=== PATIENT | female | born 1955 | race Caucasian/White ===

== ENCOUNTER → 2018-02-01 10:10 | Outpatient (CLI) | payer OTHER, SELFPAY ==
[2018-02-01 11:20] LABS: Alanine Aminotransferase 38 IU/L (9-52); Albumin 3.7 g/dL (3.5-5.0); Albumin Globulin Ratio 1.3 (1.0-2.8); Alkaline Phosphatase 46 U/L (38-126); Aspartate Aminotransferase 29 IU/L (14-36); BUN Creatinine Ratio 23.3 (6-22); Bilirubin Total 0.6 mg/dL (0.2-1.3); Calcium 9.1 mg/dL (8.4-10.2); Cholesterol 226 mg/dL (140-199); Estimated Glomerular Filt Rate > 60.0 mL/min (>60); Globulin 2.8 g/dL (1.7-4.1); Glucose 89 mg/dL (80-110); HDL Cholesterol 58 mg/dL (40-60); HEMOLYSIS < 15 (0-50); LDL Cholesterol Calculated 140 mg/dL (<100); Potassium 4.4 mmol/L (3.4-5.1); Sodium 141 mmol/L (137-145); Total Protein 6.5 g/dL (6.3-8.2); Triglycerides 140 mg/dL (35-150)
[2018-02-01 11:39] LABS: Hematocrit 40.7 % (36-46); Hemoglobin 13.7 g/dL (12.0-16.0); Mean Corpuscular HGB Conc 33.6 % (30-36); Mean Corpuscular Volume 89.3 fL (80-100); Platelet Count 271 X10^3/uL (150-400); Red Blood Cell Count 4.55 X10^6/uL (4.0-5.2); Red Cell Distribution Width 14.3 % (11.6-14.8); White Blood Cell Count 6.9 X10^3/uL (4.5-11.0)
[2018-02-01 12:03] LABS: Thyroid Stimulating Hormone 1.04 uIU/mL (0.47-4.68)
[2018-02-01 12:06] LABS: Appearance Urine UA CLEAR; Bilirubin Urine UA NEGATIVE (NEGATIVE); Color Urine UA YELLOW; Glucose Urine UA NEGATIVE (Normal); Ketones Urine UA NEGATIVE (NEGATIVE); Leukocyte Esterase Urine UA NEGATIVE (NEGATIVE); Nitrite Urine UA NEGATIVE (NEGATIVE); Occult Blood Urine UA NEGATIVE (Negative); Protein Urine UA NEGATIVE (Negative); Urobilinogen Urine UA 0.2 E.U./dL (0.2)
[2018-02-01 12:10] LABS: Neutrophils Absolute Manual 3795 /uL (3000-5900); Total Cells Counted 100
[2018-02-01 12:12] LABS: Morphology Comment Normal Morphology
[2018-02-01 12:14] LABS: Culture Indicated Urine Cult Not Indicated; Urine Comments Microscopic Normal
[2018-02-01 12:26] LABS: Creatinine Urine Random 106.4 mg/dL
[2018-02-01 12:30] LABS: Microalbumi Creatinin Ratio Ur 5.6 ug/mg CR (<30); Microalbumin Urine Random < 0.6 mg/dL (0-1.6)
== END ==
PROVIDERS: Family Provider Family Medicine; PCP Family Medicine; Visit Provider Nurse Practitioner Family
DX: E03.9 Hypothyroidism, unspecified (principal); M06.9 Rheumatoid arthritis, unspecified; Z68.38 Body mass index [BMI] 38.0-38.9, adult
CPT/HCPCS: 36415; 80053; 80061; 81001; 82043; 82570; 84443; 85025

== ENCOUNTER → 2018-08-08 07:58 | Outpatient (CLI) | payer OTHER, SELFPAY ==
--- NOTE | 2018-08-08 08:00 | DI.US.S_ITS ---
PROCEDURE: US PELVIC COMPLETE INDICATIONS: PMB TECHNIQUE: Real-time scanning was performed of the pelvic organs, with image documentation. Additional endovaginal scanning was necessary due to incomplete visualization of the adnexal and endometrial structures by transabdominal scanning. COMPARISON: [facility], , PELVIC COMPLETE, 01/29/2016, 10:27. [facility], , PELVIC COMPLETE, 08/15/2017, 14:15. FINDINGS: Transabdominal scanning: Limited scanning through the kidneys shows no hydronephrosis. No pathologic free abdominal or pelvic fluid. Endovaginal scanning: Uterus: Uterus is normal in size at 6.7 x 5.6 x 6 cm. The endometrium measures 17.8 mm in combined thickness. Ovaries: Neither ovary can be seen. IMPRESSION: The endometrial stripe is grossly thickened in this patient with a given history of postmenopausal bleeding. Differential diagnosis includes endometrial neoplasm and endometrial hyperplasia. Recommend correlation with endometrial histology, as clinically appropriate. Limited study, without visualization of either ovary. Dictated by: Mario Manley M.D. on 08/08/2018 at 8:10 Approved by: Mario Manley M.D. on 08/08/2018 at 8:11
== END ==
PROVIDERS: PCP Family Medicine; Visit Provider Family Medicine
DX: N95.0 Postmenopausal bleeding (principal)
CPT/HCPCS: 76830; 76856

== ENCOUNTER → 2018-09-21 15:27 | Outpatient (CLI) | payer MEDICARE, OTHER, SELFPAY ==
[2018-09-25 22:44] LABS: Fecal Immunochemical Test NOT DETECTED
== END ==
PROVIDERS: Registered Nurse; PCP Family Medicine; Visit Provider Family Medicine
DX: Z12.11 Encounter for screening for malignant neoplasm of colon (principal)
CPT/HCPCS: 82274

== ENCOUNTER → 2019-03-07 13:14 | Outpatient (CLI) | payer MEDICARE, OTHER, SELFPAY ==
--- NOTE | 2019-03-07 13:16 | DI.US.S_ITS ---
PROCEDURE: US PELVIC COMPLETE INDICATIONS: PMB TECHNIQUE: Real-time scanning was performed of the pelvic organs, with image documentation. Additional endovaginal scanning was necessary due to incomplete visualization of the adnexal and endometrial structures by transabdominal scanning. COMPARISON: [facility], , US PELVIC COMPLETE, 08/08/2018, 8:15. FINDINGS: Transabdominal scanning: Limited scanning through the kidneys shows no hydronephrosis. No pathologic free abdominal or pelvic fluid. Endovaginal scanning: Uterus: Uterus is normal in size at 6.3 x 3.8 x 4.8 cm. The endometrium measures at 10 mm in combined thickness. Ovaries: Bilateral ovaries are not visualized. IMPRESSION: 1. Thickened endometrium for patient's age and measures 10 mm in thickness compared to 17.8 mm on previous study. Finding may indicate endometrial hyperplasia. No discrete endometrial mass is identified. 2. Bilateral ovaries are not visualized. Dictated by: Lokesh Esposito M.D. on 03/07/2019 at 16:09 Approved by: Lokesh Esposito M.D. on 03/07/2019 at 16:12
== END ==
PROVIDERS: PCP Family Medicine
DX: N95.0 Postmenopausal bleeding (principal); R93.89 Abnormal findings on diagnostic imaging of other specified body structures
CPT/HCPCS: 76830; 76856

== ENCOUNTER → 2019-03-19 13:08 | Outpatient (CLI) | payer MEDICARE, OTHER, SELFPAY ==
[2019-03-19 14:32] LABS: Add Manual Diff / Slide Review NO; Basophils Absolute Auto 100 /uL (0-100); Basophils Percent Auto 1.4 % (0-2); Eosinophils Absolute Auto 200 /uL (0-450); Eosinophils Percent Auto 2.7 % (2-4); Hematocrit 41.1 % (36-46); Hemoglobin 13.4 g/dL (12.0-16.0); Lymphocytes Absolute Auto 2100 /uL (1100-4500); Lymphocytes Percent Auto 32.6 % (25-40); Mean Corpuscular HGB Conc 32.6 % (30-36); Mean Corpuscular Hemoglobin 29.5 PG (26-34); Mean Corpuscular Volume 90.6 fL (80-100); Monocytes Absolute Auto 700 /uL (0-900); Monocytes Percent Auto 11.1 % (3-14); Neutrophils Absolute Auto 3400 /uL (1500-7000); Neutrophils Percent Auto 52.2 % (50-75); Platelet Count 276 X10^3/uL (150-400); Red Blood Cell Count 4.53 X10^6/uL (4.0-5.2); Red Cell Distribution Width 14.6 % (11.6-14.8); White Blood Cell Count 6.5 X10^3/uL (4.5-11.0)
[2019-03-19 15:13] LABS: Alanine Aminotransferase 25 IU/L (9-52); Albumin Globulin Ratio 1.4 (1.0-2.8); Alkaline Phosphatase 49 U/L (38-126); Aspartate Aminotransferase 25 IU/L (14-36); Bilirubin Total 0.4 mg/dL (0.2-1.3); Blood Urea Nitrogen 12 mg/dL (7-17); Calcium 9.2 mg/dL (8.4-10.2); Carbon Dioxide 30 mmol/L (22-32); Chloride 105 mmol/L (98-107); Cholesterol 214 mg/dL (140-199); Creatinine Urine Random 89.2 mg/dL; Estimated Glomerular Filt Rate > 60.0 mL/min (>60); Globulin 2.9 g/dL (1.7-4.1); Glucose 105 mg/dL (80-110); HDL Cholesterol 51 mg/dL (40-60); HEMOLYSIS 17 (0-50); LDL Cholesterol Calculated 131 mg/dL (<100); Potassium 4.2 mmol/L (3.4-5.1); Sodium 141 mmol/L (137-145); Total Protein 6.9 g/dL (6.3-8.2); Triglycerides 158 mg/dL (35-150)
[2019-03-19 15:17] LABS: Microalbumi Creatinin Ratio Ur 6.7 ug/mg CR (<30); Microalbumin Urine Random < 0.6 mg/dL (0-1.6)
[2019-03-19 15:41] LABS: Thyroid Stimulating Hormone 0.75 uIU/mL (0.47-4.68)
== END ==
PROVIDERS: PCP Family Medicine; Visit Provider Family Medicine
DX: G47.33 Obstructive sleep apnea (adult) (pediatric) (principal); E66.9 Obesity, unspecified; M06.9 Rheumatoid arthritis, unspecified; M32.9 Systemic lupus erythematosus, unspecified; R89.9 Unspecified abnormal finding in specimens from other organs, systems and tissues; E03.9 Hypothyroidism, unspecified; Z13.0 Encounter for screening for diseases of the blood and blood-forming organs and certain disorders involving the immune mechanism; Z13.1 Encounter for screening for diabetes mellitus; Z13.220 Encounter for screening for lipoid disorders
CPT/HCPCS: 36415; 80053; 80061; 82043; 82570; 84443; 85025

== ENCOUNTER → 2019-05-07 11:39 | Outpatient (CLI) | payer MEDICARE, OTHER, SELFPAY ==
--- NOTE | 2019-05-07 11:42 | DI.RAD.S_ITS ---
PROCEDURE: XR FOOT LT MIN 3V INDICATIONS: Left foot swelling and pain TECHNIQUE: 3 views of the foot were acquired. COMPARISON: None. FINDINGS: Bones: Mildly displaced fracture of the distal shaft of the fourth metatarsal. No intra-articular extension. No dislocation. No suspicious bony lesions. Soft tissues: No tibiotalar joint effusion. Achilles tendon appears normal. IMPRESSION: Mildly displaced fracture of the distal fourth metatarsal. Dictated by: Jhonatan Dey M.D. on 05/07/2019 at 13:40 Approved by: Jhonatan Dey M.D. on 05/07/2019 at 13:43
== END ==
PROVIDERS: PCP Family Medicine; Visit Provider Nurse Practitioner
DX: M79.672 Pain in left foot (principal); S92.342A Displaced fracture of fourth metatarsal bone, left foot, initial encounter for closed fracture
CPT/HCPCS: 73630

== ENCOUNTER → 2020-08-07 09:48 | Outpatient (CLI) | payer MEDICARE, OTHER, SELFPAY ==
--- NOTE | 2020-08-07 09:56 | DI.CT.S_ITS ---
PROCEDURE: CT SINUS SCREEN WO CON INDICATIONS: chronic sinusitis TECHNIQUE: Noncontrast 3.0 mm axial images acquired from the frontal sinuses to the mid-sella, with coronal and sagittal reformats. For radiation dose reduction, the following was used: automated exposure control, adjustment of mA and/or kV according to patient size. COMPARISON: None. FINDINGS: Image quality: Excellent. Maxillary Sinuses: No significant mucosal thickening is seen. Portions of the medial saul of the maxillary sinuses have been removed, right more prominent than left. Ethmoid Air Cells: Portions of the ethmoid air cell septations have been removed. Sinuses are clear. Sphenoid Sinuses: No bony remodeling or destruction. Sinuses are clear. Frontal Sinuses: No bony remodeling or destruction. Sinuses are clear. Ostiomeatal Complexes: Removed. Miscellaneous: Visualized intra-orbital contents are normal. No rand bullosa or paradoxical turbinate curvature. Portions of the inferior turbinates have been removed. There is minimal leftward nasal septal deviation. IMPRESSION: No significant paranasal sinus disease is seen. Postoperative changes are seen. Dictated by: Mario Manley M.D. on 08/07/2020 at 9:09 Approved by: Mario Manley M.D. on 08/07/2020 at 9:12
== END ==
PROVIDERS: PCP Family Medicine; Referring Provider Family Medicine; Visit Provider Family Medicine
DX: J32.0 Chronic maxillary sinusitis (principal)
CPT/HCPCS: 70486

== ENCOUNTER 2021-07-24 14:19 | Emergency (ER) | payer MEDICARE, OTHER, SELFPAY ==
[2021-07-24 14:30] VITALS: BP 167/67; PULSE 67; RESP 12; TEMP 36.6; O2SAT 98; BMI 34.7
[2021-07-24 15:05] LABS: Add Manual Diff / Slide Review NO; Basophils Absolute Auto 100 /uL (0-100); Basophils Percent Auto 0.4 % (0-2); Eosinophils Absolute Auto 0 /uL (0-450); Eosinophils Percent Auto 0.1 % (2-4); Hemoglobin 13.1 g/dL (12.0-16.0); Lymphocytes Absolute Auto 1100 /uL (1100-4500); Lymphocytes Percent Auto 9.1 % (25-40); Mean Corpuscular HGB Conc 32.8 % (30-36); Mean Corpuscular Hemoglobin 29.4 PG (26-34); Mean Corpuscular Volume 89.8 fL (80-100); Monocytes Absolute Auto 700 /uL (0-900); Monocytes Percent Auto 5.4 % (3-14); Neutrophils Absolute Auto 10400 /uL (1500-7000); Platelet Count 272 X10^3/uL (150-400); Red Blood Cell Count 4.46 X10^6/uL (4.0-5.2); Red Cell Distribution Width 13.6 % (11.6-14.8); White Blood Cell Count 12.2 X10^3/uL (4.5-11.0)
--- NOTE | 2021-07-24 15:08 | DI.CT.S_ITS ---
PROCEDURE: CT ABDOMEN PELVIS W CON INDICATIONS: abdominal pain TECHNIQUE: After the administration of intravenous contrast, axial sections acquired from the lung bases to the pubic symphysis. Coronal and sagittal reformats were performed. For radiation dose reduction, the following was used: automated exposure control, adjustment of mA and/or kV according to patient size. COMPARISON: None. FINDINGS: Image quality: Excellent. Lung bases: Dependent atelectasis in posterior aspect of bilateral lung bases are seen.. Heart: No significant findings. ABDOMEN: Liver: Liver is normal in size. Hepatic steatosis is seen, no discrete hepatic lesion.. Gallbladder: Gallbladder is distended. No calcified gallstone or gallbladder wall thickening. Biliary ducts: Unremarkable. Pancreas: Unremarkable. Spleen: Unremarkable. Adrenal Glands: Unremarkable. Kidneys and Ureters: Tiny 2-3 mm bilateral nonobstructing renal calculi are seen. No hydronephrosis or hydroureter. No perinephric fat stranding. Stomach and Bowel: There is a small hiatal hernia. No evidence of bowel obstruction. No gross bowel wall thickening or mesenteric fat stranding. No abscess collection. Peritoneum: No abnormal intraperitoneal fluid. No free air. Ventral Wall: No hernias. Abdominal Nodes: No retroperitoneal or mesenteric adenopathy by size criteria. Vessels: Aorta and inferior vena cava are normal in size. PELVIS: Pelvic Organs: Uterus and bilateral adnexa show no gross abnormality. Bladder: Unremarkable. Pelvic Nodes: No enlarged lymph nodes. Miscellaneous: No hernias are seen. Bones: No suspicious bony lesion. No acute vertebral body compression fracture. IMPRESSION: 1. No acute inflammatory process within abdomen or pelvis. No bowel obstruction. No free fluid or free air. 2. Tiny nonobstructing bilateral renal calculi. No hydronephrosis or hydroureter. Normal appearing urinary bladder. 3. Hepatic steatosis, no discrete hepatic lesion. 4. Small hiatal hernia. Dictated by: Lokesh Esposito M.D. on 07/24/2021 at 15:45 Approved by: Lokesh Esposito M.D. on 07/24/2021 at 15:56
[2021-07-24 15:10] LABS: Alanine Aminotransferase 24 IU/L (<35); Albumin Globulin Ratio 1.5 (1.0-2.8); Alkaline Phosphatase 36 U/L (38-126); Aspartate Aminotransferase 25 IU/L (14-36); BUN Creatinine Ratio 19.6 (6-22); Bilirubin Total 0.5 mg/dL (0.2-1.3); Blood Urea Nitrogen 10 mg/dL (7-17); Calcium 9.6 mg/dL (8.4-10.2); Carbon Dioxide 31 mmol/L (22-32); Chloride 102 mmol/L (98-107); Estimated Glomerular Filt Rate > 60.0 mL/min (>60); Globulin 2.7 g/dL (1.7-4.1); Glucose 119 mg/dL (80-110); HEMOLYSIS < 15 (0-50); Lipase 43 U/L (23-300); Sodium 138 mmol/L (137-145); Total Protein 6.7 g/dL (6.3-8.2)
--- NOTE | 2021-07-24 15:11 | ED_ITS ---
HPI - Abdominal Pain <Femi Gregorio PA-C - Last Filed: 07/24/21 19:44> General Chief Complaint: Abdominal Pain Stated Complaint: Severe Rt Sided Abd Pain, Back Pain Time Seen by Provider: 07/24/21 14:54 Source: patient Mode of arrival: Ambulatory History of Present Illness HPI narrative: Patient is a 65-year-old female presenting to the emergency department today for an evaluation of abdominal pain that began last night. Patient states that she began to experience a cramping abdominal pain before she went to bed last night, and she notes that she has also experienced nausea and episodes of nonbloody non bilious vomiting. Patient reports episodes of chills and notes that she is also experience constipation, however she states that due to her lactose intolerance she often experiences intermittent episodes of constipation. Patient rates her pain a 9/10 in intensity. She denies fever, chest pain, shortness of breath, cough, dysuria, diarrhea. No other concerns voiced at this time. Related Data Home Medications Medication Instructions Recorded Confirmed [BIEST/PROG/DHEA] 0 PO Q DAY #0 05/12/18 01/15/21 Resmed Airsense 10 CPAP #1 ea 12/21/18 01/15/21 adalimumab 10 mg/0.2 mL See Rx Instructions SUBCUT .COMPLEX 05/23/20 01/15/21 subcutaneous syringe kit (Humira) folic acid 1 mg tablet 5 mg PO QDAY tab 01/15/21 01/15/21 hydroxychloroquine 200 mg tablet 200 mg PO BID tab 01/15/21 01/15/21 (Plaquenil) prednisone 5 mg tablet 4 mg PO Q OTHER DAY tab 01/15/21 01/15/21 Previous Rx's Medication Instructions Recorded tramadol 50 mg tablet 50 mg PO DAILY PRN #30 tab 09/01/18 methotrexate sodium 2.5 mg tablet 10 mg PO QWEEK #32 tab 12/15/18 miconazole nitrate 200 mg-2 % (9 See Rx Instructions VAG .COMPLEX 02/01/19 gram) vaginal kit (Monistat 3) #1 each Post op shoe left #1 ea 05/09/19 prednisone 1 mg tablet 1 mg PO Q OTHER DAY #192 tab 10/12/19 albuterol sulfate 1.25 mg/3 mL 1.25 mg INHALATION Q4-6H PRN #75 ml 12/18/19 solution for nebulization Nebulizer #1 ea 01/18/20 divalproex 250 mg tablet,delayed See Rx Instructions .ROUTE 11/11/20 release .COMPLEX #180 tab albuterol sulfate 90 mcg/actuation See Rx Instructions .ROUTE 12/15/20 aerosol inhaler (ProAir HFA) .COMPLEX #8.5 g loratadine 10 mg tablet See Rx Instructions .ROUTE 12/19/20 .COMPLEX #90 tab propranolol 20 mg tablet See Rx Instructions .ROUTE 05/21/21 .COMPLEX #30 tab bupropion HCl 150 mg tablet,12 hr See Rx Instructions .ROUTE 06/17/21 sustained-release .COMPLEX #30 tab trazodone 100 mg tablet See Rx Instructions .ROUTE 06/17/21 .COMPLEX #30 tab fluticasone propionate 50 1 spray INTRANASAL BID #47.4 g 07/09/21 mcg/actuation nasal spray,suspension fluticasone propionate 50 1 spray INTRANASAL BID #47.4 gram 07/09/21 mcg/actuation nasal spray,suspension dicyclomine 10 mg capsule 10 mg PO BID #30 cap 07/24/21 ondansetron HCl 4 mg tablet 4 mg PO Q8H PRN #30 tab 07/24/21 (Zofran) Allergies Allergy/AdvReac Type Severity Reaction Status Date / Time No Known Drug Allergies Allergy Verified 07/24/21 14:37 Review of Systems <Femi Gregorio PA-C - Last Filed: 07/24/21 19:44> Constitutional Constitutional: Reports chills, Denies fever(s), Denies lethargy and Denies weakness Cardiovascular Cardiovascular: Denies chest pain, Denies irregular heart rhythm, Denies lightheadedness, Denies palpitations, Denies dyspnea, Denies dyspnea on exertion and Denies orthopnea Respiratory Respiratory: Denies cough, Denies dyspnea, Denies dyspnea on exertion and Denies wheezing Gastrointestinal Gastrointestinal: Reports abdominal pain, Denies change in bowel habits, Denies diarrhea, Reports nausea and Reports vomiting Neurologic Neurologic: Denies weakness Endocrine Endocrine: Denies palpitations Allergic/Immunologic Allergic/Immunologic: Denies wheezing Patient History <Femi Gregorio PA-C - Last Filed: 07/24/21 19:44> Medical History (Updated 07/24/21 @ 18:47 by Femi Gregorio PA-C) ADHD (attention deficit hyperactivity disorder) Ankle pain Chronic back pain Fecal incontinence Fibromyalgia Argelia's thyroiditis Hypothyroidism IBS (irritable bowel syndrome) Insomnia Obesity (BMI 30-39.9) Obstructive sleep apnea of adult Radius/ulna fracture Raynaud's disease Rheumatoid arthritis (2011) Sjogren's disease SLE (systemic lupus erythematosus) (1986) Vitiligo Surgical History Anesthesia complication History of sinus surgery (1988) History of sinus surgery (1993) Status post breast lumpectomy (1977) Status post dilation and curettage (1993) Status post dilation and curettage (02/27/16) Status post hysteroscopy (02/27/16) Status post surgery (02/27/16) Family History Brother Age: 62 RA (rheumatoid arthritis) Grandfather Age: 74 Polio Heart disease Mother Age: 86 Myelodysplasia Thyroid condition Grandfather Age: 86 Pulmonary fibrosis Stroke Grandmother Age: 86 Pulmonary fibrosis Stroke Lupus Sister Age: 57 Thyroid cancer Father No problems noted. Family/Other Lupus Grandmother No problems noted. Social History marital status: number of children: 2 household members: none lives independently: Yes caregiver/support person: No housing: house occupational status: unemployed Smoking Status: Never smoker second hand exposure: No alcohol intake: current substance use type: does not use Smoking Status: Never smoker alcohol intake frequency: a few times a week Substance Use Type: does not use Exam <Femi Gregorio PA-C - Last Filed: 07/24/21 19:44> Narrative Exam Narrative: GENERAL: 65 year old patient appears stated age. Well-developed patient, in mild distress. Patient appears uncomfortable. HEAD: Atraumatic. Normocephalic. EYES: Pupils equal round and reactive. Extraocular motions intact. No scleral icterus. No injection or drainage. ENT: Nose without bleeding, purulent drainage. Throat without erythema, tonsillar hypertrophy or exudate. Airway patent. NECK: Trachea midline. Non tender CARDIOVASCULAR: Regular rate and rhythm without murmurs, gallops, or rubs. RESPIRATORY: Clear to auscultation. Breath sounds equal bilaterally. No wheezes, rales, or rhonchi. GASTROINTESTINAL: Abdomen soft. Tenderness to palpation appreciated over the right upper quadrant and left lower quadrant. Negative Muhammad sign. EXTREMITIES: No edema or joint tenderness. BACK: Nontender without deformity or crepitance. No flank tenderness. NEURO: AOx3. SKIN: No rash or erythema of visible areas Initial Vital Signs Initial Vital Signs: Vital Signs Temperature 98 F 07/24/21 14:30 Pulse Rate 67 07/24/21 14:30 Respiratory Rate 12 07/24/21 14:30 Blood Pressure 167/67 H 07/24/21 14:30 Pulse Oximetry 98 07/24/21 14:30 <Wayne Paez DO - Last Filed: 07/24/21 19:51> Initial Vital Signs Initial Vital Signs: Vital Signs Temperature 98 F 07/24/21 14:30 Pulse Rate 67 07/24/21 14:30 Respiratory Rate 12 07/24/21 14:30 Blood Pressure 167/67 H 07/24/21 14:30 Pulse Oximetry 98 07/24/21 14:30 Course <Femi Gregorio PA-C - Last Filed: 07/24/21 19:44> Course Course Narrative: Patient is a 65-year-old female presenting to the emergency department today for an evaluation of abdominal pain that began last night. Orders Ordered: ED Orders 07/24/21 14:38 EKG-12 Lead Stat 07/24/21 14:45 Complete Blood Count AUTO DIFF Stat Comprehensive Metabolic Panel Stat Lipase Stat 07/24/21 15:08 CT abdomen pelvis w con Stat 07/24/21 16:00 COVID19 -Nasal swab/Pre-Proc Stat 07/24/21 17:18 Urinalysis and Microscopic Stat Discontinued Medications Hydromorphone HCl (Hydromorphone 0.5 Mg Inj) 0.5 mg IV NOW ONE Stop: 07/24/21 15:45 Last Admin: 07/24/21 15:50 Dose: 0.5 mg Documented by: [place] Ondansetron HCl (Ondansetron 4 Mg/2 Ml Inj) 4 mg IV NOW ONE Stop: 07/24/21 14:39 Last Admin: 07/24/21 15:34 Dose: 4 mg Documented by: [place] Vital Signs Vital signs: Vital Signs - 8 hr 07/24/21 14:30 07/24/21 15:48 07/24/21 16:00 Temperature 98 F Pulse Rate 67 72 69 Respiratory Rate 12 17 20 Blood Pressure 167/67 H 148/67 H Pulse Oximetry 98 94 07/24/21 16:30 07/24/21 17:00 07/24/21 18:37 Temperature Pulse Rate 70 77 71 Respiratory Rate 21 22 Blood Pressure 155/67 H 139/61 Pulse Oximetry 95 96 97 <Wayne Paez DO - Last Filed: 07/24/21 19:51> Orders Ordered: ED Orders 07/24/21 14:38 EKG-12 Lead Stat 07/24/21 14:45 Complete Blood Count AUTO DIFF Stat Comprehensive Metabolic Panel Stat Lipase Stat 07/24/21 15:08 CT abdomen pelvis w con Stat 07/24/21 16:00 COVID19 -Nasal swab/Pre-Proc Stat 07/24/21 17:18 Urinalysis and Microscopic Stat Discontinued Medications Hydromorphone HCl (Hydromorphone 0.5 Mg Inj) 0.5 mg IV NOW ONE Stop: 07/24/21 15:45 Last Admin: 07/24/21 15:50 Dose: 0.5 mg Documented by: [place] Ondansetron HCl (Ondansetron 4 Mg/2 Ml Inj) 4 mg IV NOW ONE Stop: 07/24/21 14:39 Last Admin: 07/24/21 15:34 Dose: 4 mg Documented by: [place] Vital Signs Vital signs: Vital Signs - 8 hr 07/24/21 14:30 07/24/21 15:48 07/24/21 16:00 Temperature 98 F Pulse Rate 67 72 69 Respiratory Rate 12 17 20 Blood Pressure 167/67 H 148/67 H Pulse Oximetry 98 94 07/24/21 16:30 07/24/21 17:00 07/24/21 18:37 Temperature Pulse Rate 70 77 71 Respiratory Rate 21 22 Blood Pressure 155/67 H 139/61 Pulse Oximetry 95 96 97 MDM - Abdominal Pain <Femi Gregorio PA-C - Last Filed: 07/24/21 19:44> Lab Data Result diagrams: 07/24/21 14:45 07/24/21 14:45 Labs: Lab Results 07/24/21 07/24/21 07/24/21 Range/Units 14:45 14:45 16:00 WBC 12.2 H (4.5-11.0) X10^3/uL RBC 4.46 (4.0-5.2) X10^6/uL Hgb 13.1 (12.0-16.0) g/dL Hct 40.0 (36-46) % MCV 89.8 (80-100) fL MCH 29.4 (26-34) PG MCHC 32.8 (30-36) % RDW 13.6 (11.6-14.8) % Plt Count 272 (150-400) X10^3/uL Neut % (Auto) 85.0 H (50-75) % Lymph % (Auto) 9.1 L (25-40) % [place] % (Auto) 5.4 (3-14) % Eos % (Auto) 0.1 L (2-4) % Baso % (Auto) 0.4 (0-2) % Neut # (Auto) 40303 H (8911-0061) /uL Lymph # (Auto) 1100 (2564-7088) /uL [place] # (Auto) 700 (0-900) /uL Eos # (Auto) 0 (0-450) /uL Baso # (Auto) 100 (0-100) /uL Sodium 138 (137-145) mmol/L Potassium 4.0 (3.4-5.1) mmol/L Chloride 102 (98-107) mmol/L Carbon Dioxide 31 (22-32) mmol/L BUN 10 (7-17) mg/dL Creatinine 0.51 L (0.52-1.04) mg/dL Estimated GFR > 60.0 (>60) mL/min BUN/Creatinine Ratio 19.6 (6-22) Glucose 119 H (80-110) mg/dL Calcium 9.6 (8.4-10.2) mg/dL Total Bilirubin 0.5 (0.2-1.3) mg/dL AST 25 (14-36) IU/L ALT 24 (<35) IU/L Alkaline Phosphatase 36 L (38-126) U/L Total Protein 6.7 (6.3-8.2) g/dL Albumin 4.0 (3.5-5.0) g/dL Globulin 2.7 (1.7-4.1) g/dL Albumin/Globulin Ratio 1.5 (1.0-2.8) Lipase 43 (23-300) U/L Urine Color Urine Appearance Urine pH (4.5-8.0) Ur Specific [place] (1.000-1.035) Urine Protein (Negative) Urine Glucose (UA) (Negative) g/dL Urine Ketones (NEGATIVE) Urine Occult Blood (Negative) Urine Nitrate (Negative) Urine Bilirubin (NEGATIVE) Urine Urobilinogen (0.2) E.U./dL Ur Leukocyte Esterase (NEGATIVE) Urine RBC (0-5/HPF) Urine WBC (0-5/HPF) Other Crystals Urine Bacteria (None) Ur Culture Indicated? SARS-CoV-2 (PCR) Negative (Negative) 07/24/21 Range/Units 17:18 WBC (4.5-11.0) X10^3/uL RBC (4.0-5.2) X10^6/uL Hgb (12.0-16.0) g/dL Hct (36-46) % MCV (80-100) fL MCH (26-34) PG MCHC (30-36) % RDW (11.6-14.8) % Plt Count (150-400) X10^3/uL Neut % (Auto) (50-75) % Lymph % (Auto) (25-40) % [place] % (Auto) (3-14) % Eos % (Auto) (2-4) % Baso % (Auto) (0-2) % Neut # (Auto) (4092-9073) /uL Lymph # (Auto) (6509-4051) /uL [place] # (Auto) (0-900) /uL Eos # (Auto) (0-450) /uL Baso # (Auto) (0-100) /uL Sodium (137-145) mmol/L Potassium (3.4-5.1) mmol/L Chloride (98-107) mmol/L Carbon Dioxide (22-32) mmol/L BUN (7-17) mg/dL Creatinine (0.52-1.04) mg/dL Estimated GFR (>60) mL/min BUN/Creatinine Ratio (6-22) Glucose (80-110) mg/dL Calcium (8.4-10.2) mg/dL Total Bilirubin (0.2-1.3) mg/dL AST (14-36) IU/L ALT (<35) IU/L Alkaline Phosphatase (38-126) U/L Total Protein (6.3-8.2) g/dL Albumin (3.5-5.0) g/dL Globulin (1.7-4.1) g/dL Albumin/Globulin Ratio (1.0-2.8) Lipase (23-300) U/L Urine Color Yellow Urine Appearance Clear Urine pH 7.5 (4.5-8.0) Ur Specific [place] 1.020 (1.000-1.035) Urine Protein Trace H (Negative) Urine Glucose (UA) Trace H (Negative) g/dL Urine Ketones Negative (NEGATIVE) Urine Occult Blood Negative (Negative) Urine Nitrate Negative (Negative) Urine Bilirubin Negative (NEGATIVE) Urine Urobilinogen 1.0 (0.2) E.U./dL Ur Leukocyte Esterase Negative (NEGATIVE) Urine RBC 0-1/hpf (0-5/HPF) Urine WBC 0-1/hpf (0-5/HPF) Other Crystals 1+ amorphous Urine Bacteria None seen (None) Ur Culture Indicated? Cult not indicated SARS-CoV-2 (PCR) (Negative) Point of care testing: Urine Dip Bedside Urine Glucose Negative Bedside Urine Bilirubin - Negative Bedside Urine Ketone - Negative Urine Specific [place] 1.020 Bedside Urine Occult Blood - Negative Bedside Urine pH 7.0 Bedside Urine Protein - Negative Bedside Urine Urobilinogen 0.2 Bedside Urine Nitrite - Negative Bedside Urine Leukocytes - Negative Esterase Imaging Data CT scan - abdomen/pelvis: Radiologist's Impression: PROCEDURE:? CT ABDOMEN PELVIS W CON ? INDICATIONS:? abdominal pain ? TECHNIQUE:? After the administration of intravenous contrast, axial sections acquired from the lung bases to the pubic symphysis.? Coronal and sagittal reformats were performed.? For radiation dose reduction, the following was used:? automated exposure control, adjustment of mA and/or kV according to patient size.? ? COMPARISON:? None. ? FINDINGS:? Image quality:? Excellent.? ? Lung bases:? Dependent atelectasis in posterior aspect of bilateral lung bases are seen.. Heart:? No significant findings. ? ABDOMEN: Liver:? Liver is normal in size.? Hepatic steatosis is seen, no discrete hepatic lesion.. ?? Gallbladder:? Gallbladder is distended.? No calcified gallstone or gallbladder wall thickening. Biliary ducts:? Unremarkable.? ? Pancreas:? Unremarkable.? ? Spleen:? Unremarkable.? ? Adrenal Glands:? Unremarkable.? ? Kidneys and Ureters:? Tiny 2-3 mm bilateral nonobstructing renal calculi are seen.? No hydronephrosis or hydroureter.? No perinephric fat stranding.? ? Stomach and Bowel:? There is a small hiatal hernia.? No evidence of bowel obstruction.? No gross bowel wall thickening or mesenteric fat stranding.? No abscess collection. Peritoneum:? No abnormal intraperitoneal fluid.? No free air.? ? Ventral Wall: ? No hernias.? Abdominal Nodes:? No retroperitoneal or mesenteric adenopathy by size criteria.? Vessels:? Aorta and inferior vena cava are normal in size.? ? PELVIS: Pelvic Organs:? Uterus and bilateral adnexa show no gross abnormality. Bladder:? Unremarkable.? ? Pelvic Nodes: No enlarged lymph nodes.? Miscellaneous: No hernias are seen. ? ? ? Bones:? No suspicious bony lesion.? No acute vertebral body compression fracture. ? ? IMPRESSION: 1. No acute inflammatory process within abdomen or pelvis.? No bowel obstruction.? No free fluid or free air. 2.? Tiny nonobstructing bilateral renal calculi.? No hydronephrosis or hydroureter.? Normal appearing urinary bladder. 3.? Hepatic steatosis, no discrete hepatic lesion.? 4.? Small hiatal hernia. ? ? Dictated by: Lokesh Esposito M.D. on 07/24/2021 at 15:45 ? ? Approved by: Lokesh Esposito M.D. on 07/24/2021 at 15:56 ? [facility] Narrative Medical decision making narrative: Patient is a 65-year-old female presenting to the emergency department today for an evaluation of abdominal pain that began last night. To consider ischemic bowel versus cholelithiasis versus appendicitis. CT of abdomen and pelvis with IV contrast obtained which showed no acute inflammatory process within abdomen or pelvis.? No bowel obstruction.? No free fluid or free air. Discussed with the patient the importance of ordering a Giardia lamblia IAE in ER, but she states she is unable to currently provide a stool sample. Patient states that she interacts with [facility] regularly and is concerned that she may have giardiasis. I instructed the patient to contact her primary care provider as soon as possible to schedule the earliest available appointment to have a stool sample obtained and tested. At this time patient feels comfortable being discharged home. Strict return precautions discussed with the patient prior to discharge. <Wayne Philippe, - Last Filed: 07/24/21 19:51> Lab Data Labs: Lab Results 07/24/21 07/24/21 07/24/21 Range/Units 14:45 14:45 16:00 WBC 12.2 H (4.5-11.0) X10^3/uL RBC 4.46 (4.0-5.2) X10^6/uL Hgb 13.1 (12.0-16.0) g/dL Hct 40.0 (36-46) % MCV 89.8 (80-100) fL MCH 29.4 (26-34) PG MCHC 32.8 (30-36) % RDW 13.6 (11.6-14.8) % Plt Count 272 (150-400) X10^3/uL Neut % (Auto) 85.0 H (50-75) % Lymph % (Auto) 9.1 L (25-40) % [place] % (Auto) 5.4 (3-14) % Eos % (Auto) 0.1 L (2-4) % Baso % (Auto) 0.4 (0-2) % Neut # (Auto) 83546 H (7338-0286) /uL Lymph # (Auto) 1100 (4853-4837) /uL [place] # (Auto) 700 (0-900) /uL Eos # (Auto) 0 (0-450) /uL Baso # (Auto) 100 (0-100) /uL Sodium 138 (137-145) mmol/L Potassium 4.0 (3.4-5.1) mmol/L Chloride 102 (98-107) mmol/L Carbon Dioxide 31 (22-32) mmol/L BUN 10 (7-17) mg/dL Creatinine 0.51 L (0.52-1.04) mg/dL Estimated GFR > 60.0 (>60) mL/min BUN/Creatinine Ratio 19.6 (6-22) Glucose 119 H (80-110) mg/dL Calcium 9.6 (8.4-10.2) mg/dL Total Bilirubin 0.5 (0.2-1.3) mg/dL AST 25 (14-36) IU/L ALT 24 (<35) IU/L Alkaline Phosphatase 36 L (38-126) U/L Total Protein 6.7 (6.3-8.2) g/dL Albumin 4.0 (3.5-5.0) g/dL Globulin 2.7 (1.7-4.1) g/dL Albumin/Globulin Ratio 1.5 (1.0-2.8) Lipase 43 (23-300) U/L Urine Color Urine Appearance Urine pH (4.5-8.0) Ur Specific [place] (1.000-1.035) Urine Protein (Negative) Urine Glucose (UA) (Negative) g/dL Urine Ketones (NEGATIVE) Urine Occult Blood (Negative) Urine Nitrate (Negative) Urine Bilirubin (NEGATIVE) Urine Urobilinogen (0.2) E.U./dL Ur Leukocyte Esterase (NEGATIVE) Urine RBC (0-5/HPF) Urine WBC (0-5/HPF) Other Crystals Urine Bacteria (None) Ur Culture Indicated? SARS-CoV-2 (PCR) Negative (Negative) 07/24/21 Range/Units 17:18 WBC (4.5-11.0) X10^3/uL RBC (4.0-5.2) X10^6/uL Hgb (12.0-16.0) g/dL Hct (36-46) % MCV (80-100) fL MCH (26-34) PG MCHC (30-36) % RDW (11.6-14.8) % Plt Count (150-400) X10^3/uL Neut % (Auto) (50-75) % Lymph % (Auto) (25-40) % [place] % (Auto) (3-14) % Eos % (Auto) (2-4) % Baso % (Auto) (0-2) % Neut # (Auto) (4116-2861) /uL Lymph # (Auto) (3711-8720) /uL [place] # (Auto) (0-900) /uL Eos # (Auto) (0-450) /uL Baso # (Auto) (0-100) /uL Sodium (137-145) mmol/L Potassium (3.4-5.1) mmol/L Chloride (98-107) mmol/L Carbon Dioxide (22-32) mmol/L BUN (7-17) mg/dL Creatinine (0.52-1.04) mg/dL Estimated GFR (>60) mL/min BUN/Creatinine Ratio (6-22) Glucose (80-110) mg/dL Calcium (8.4-10.2) mg/dL Total Bilirubin (0.2-1.3) mg/dL AST (14-36) IU/L ALT (<35) IU/L Alkaline Phosphatase (38-126) U/L Total Protein (6.3-8.2) g/dL Albumin (3.5-5.0) g/dL Globulin (1.7-4.1) g/dL Albumin/Globulin Ratio (1.0-2.8) Lipase (23-300) U/L Urine Color Yellow Urine Appearance Clear Urine pH 7.5 (4.5-8.0) Ur Specific [place] 1.020 (1.000-1.035) Urine Protein Trace H (Negative) Urine Glucose (UA) Trace H (Negative) g/dL Urine Ketones Negative (NEGATIVE) Urine Occult Blood Negative (Negative) Urine Nitrate Negative (Negative) Urine Bilirubin Negative (NEGATIVE) Urine Urobilinogen 1.0 (0.2) E.U./dL Ur Leukocyte Esterase Negative (NEGATIVE) Urine RBC 0-1/hpf (0-5/HPF) Urine WBC 0-1/hpf (0-5/HPF) Other Crystals 1+ amorphous Urine Bacteria None seen (None) Ur Culture Indicated? Cult not indicated SARS-CoV-2 (PCR) (Negative) Point of care testing: Urine Dip Bedside Urine Glucose Negative Bedside Urine Bilirubin - Negative Bedside Urine Ketone - Negative Urine Specific [place] 1.020 Bedside Urine Occult Blood - Negative Bedside Urine pH 7.0 Bedside Urine Protein - Negative Bedside Urine Urobilinogen 0.2 Bedside Urine Nitrite - Negative Bedside Urine Leukocytes - Negative Esterase Discharge Plan Departure Patient Disposition: Home Clinical Impression: Abdominal pain Qualifiers: Abdominal location: generalized Qualified Code(s): R10.84 - Generalized abdominal pain Instructions: DI for Abdominal Pain-Adult Activity Restrictions/Additional Instructions: *You have been diagnosed with abdominal pain *What to do: *Please continue to take your regular medications as directed. [X] [facility] [ ] New medication written as a paper prescription [ ] No new medications given *Please follow up with your primary care provider in 2-3 days, call for an appointment. Let them know you were seen in the Emergency Department and that we ask that you be seen in follow up. We will electronically transmit a record of today's note if your PCP is in our system *If you do not have a primary care provider please contact the [facility] Resource line at [phone]. They will ask some questions about your medical history and help get you set up with a doctor in the community. *Return to Emergency Department if you should have any new, worsening or concerning symptoms, such as fever greater than 101 F, shaking chills, worsening abdominal pain, persistent vomiting, or other bothersome symptoms. Prescriptions: New ondansetron HCl [Zofran] 4 mg tablet 4 mg PO Q8H PRN (Reason: nausea and vomiting) Qty: 30 RF: 0 dicyclomine 10 mg capsule 10 mg PO BID Qty: 30 RF: 0 No Action Humira 10 mg/0.2 mL syringe kit See Rx Instructions SUBCUT .COMPLEX RF: 0 [BIEST/PROG/DHEA] 15 mg saira 0 PO Q DAY Qty: 0 RF: 0 tramadol 50 mg tablet 50 mg PO DAILY PRN (Reason: pain) Qty: 30 RF: 0 Monistat 3 200 mg- 2 % (9 gram) kit See Rx Instructions VAG .COMPLEX Qty: 1 RF: 0 (DME) Post op shoe left 9 Qty: 1 RF: 0 prednisone 1 mg tablet 1 mg PO Q OTHER DAY Qty: 192 RF: 3 albuterol sulfate 1.25 mg/3 mL solution for nebulization 1.25 mg INHALATION Q4-6H PRN (Reason: shortness of breath or wheezing) Qty: 75 RF: 3 (DME) Nebulizer Qty: 1 RF: 0 divalproex 250 mg tablet,delayed release (DR/EC) See Rx Instructions .ROUTE .COMPLEX Qty: 180 RF: 1 albuterol sulfate [ProAir HFA] 90 mcg/actuation HFA aerosol inhaler See Rx Instructions .ROUTE .COMPLEX Qty: 8.5 RF: 5 loratadine 10 mg tablet See Rx Instructions .ROUTE .COMPLEX Qty: 90 RF: 1 propranolol 20 mg tablet See Rx Instructions .ROUTE .COMPLEX Qty: 30 RF: 0 bupropion HCl 150 mg tablet sustained-release 12 hr See Rx Instructions .ROUTE .COMPLEX Qty: 30 RF: 0 trazodone 100 mg tablet See Rx Instructions .ROUTE .COMPLEX Qty: 30 RF: 0 fluticasone propionate 50 mcg/actuation spray,suspension 1 spray Intranasal BID Qty: 47.4 RF: 0 fluticasone propionate 50 mcg/actuation spray,suspension 1 spray intranasal BID Qty: 47.4 RF: 3 methotrexate sodium 2.5 mg tablet 10 mg PO QWEEK Qty: 32 RF: 3 (DME) Resmed Airsense 10 CPAP Qty: 1 RF: 0 folic acid 1 mg tablet 5 mg PO QDAY RF: 0 hydroxychloroquine [Plaquenil] 200 mg tablet 200 mg PO BID RF: 0 prednisone 5 mg tablet 4 mg PO Q OTHER DAY RF: 0 Referrals: Vianey Souza MD [Primary Care Provider] - <Wayne Paez DO - Last Filed: 07/24/21 19:51> Cosign ED Attending Cosignature Attestation: Dr Paez Co-Sign Statement: I was available for consultation during this patient's emergency department visit. This chart is signed by myself for administrative purposes only. I did not have direct contact with this patient during this visit. They were seen independently by the [facility].
[2021-07-24] MEDS: ONDANSETRON 4 MG/2 ML INJ IV (15:34)
[2021-07-24 15:48] VITALS: PULSE 72; RESP 17; O2SAT 94
[2021-07-24] MEDS: HYDROMORPHONE 0.5 MG INJ IV (15:50)
[2021-07-24 16:00] VITALS: BP 148/67; PULSE 69; RESP 20
[2021-07-24 16:30] VITALS: BP 155/67; PULSE 70; RESP 21; O2SAT 95
[2021-07-24 16:32] LABS: COVID19 -Nasal RAPID Negative (Negative)
[2021-07-24 17:00] VITALS: PULSE 77; O2SAT 96
[2021-07-24 17:20] LABS: Appearance Urine UA CLEAR; Bilirubin Urine UA NEGATIVE (NEGATIVE); Color Urine UA YELLOW; Glucose Urine UA TRACE g/dL (Negative); Ketones Urine UA NEGATIVE (NEGATIVE); Leukocyte Esterase Urine UA NEGATIVE (NEGATIVE); Nitrite Urine UA NEGATIVE (Negative); Occult Blood Urine UA NEGATIVE (Negative); Protein Urine UA TRACE (Negative)
[2021-07-24 17:29] LABS: Bacteria Urine None Seen; Culture Indicated Urine Cult Not Indicated; RBC Urine 0-1/HPF (0-5/HPF); WBC Urine 0-1/HPF (0-5/HPF); pH Urine UA 7.5 (4.5-8.0)
[2021-07-24 18:37] VITALS: BP 139/61; PULSE 71; RESP 22; O2SAT 97
== END 2021-07-24 19:02 | disposition home or self-care (01) ==
PROVIDERS: Emergency Medicine; Emergency Provider Physician Assistant; PCP Family Medicine
DX: R10.84 Generalized abdominal pain (principal); R11.2 Nausea with vomiting, unspecified; Z20.822 Contact with and (suspected) exposure to COVID-19
CPT/HCPCS: 36415; 74177; 80053; 81001; 81003; 83690; 85025; 87635; 93005; 93010; 96374; 96375; 99284; C9803; J1170; J2405; Q9967

== ENCOUNTER → 2021-08-05 13:03 | Outpatient (CLI) | payer MEDICARE, OTHER, SELFPAY ==
[2021-08-05 13:38] LABS: Add Manual Diff / Slide Review NO; Basophils Absolute Auto 100 /uL (0-100); Basophils Percent Auto 1.1 % (0-2); Eosinophils Absolute Auto 300 /uL (0-450); Eosinophils Percent Auto 3.7 % (2-4); Hematocrit 40.1 % (36-46); Hemoglobin 13.3 g/dL (12.0-16.0); Lymphocytes Absolute Auto 2200 /uL (1100-4500); Lymphocytes Percent Auto 31.1 % (25-40); Mean Corpuscular HGB Conc 33.2 % (30-36); Mean Corpuscular Hemoglobin 29.8 PG (26-34); Mean Corpuscular Volume 89.7 fL (80-100); Monocytes Absolute Auto 800 /uL (0-900); Monocytes Percent Auto 10.5 % (3-14); Neutrophils Absolute Auto 3900 /uL (1500-7000); Neutrophils Percent Auto 53.6 % (50-75); Platelet Count 373 X10^3/uL (150-400); Red Blood Cell Count 4.47 X10^6/uL (4.0-5.2); Red Cell Distribution Width 13.6 % (11.6-14.8); White Blood Cell Count 7.2 X10^3/uL (4.5-11.0)
[2021-08-05 13:51] LABS: Alanine Aminotransferase 27 IU/L (<35); Albumin Globulin Ratio 1.5 (1.0-2.8); Alkaline Phosphatase 41 U/L (38-126); Aspartate Aminotransferase 26 IU/L (14-36); BUN Creatinine Ratio 24.3 (6-22); Bilirubin Total 0.4 mg/dL (0.2-1.3); Blood Urea Nitrogen 18 mg/dL (7-17); C-Reactive Protein Quant < 0.5 mg/dL (<1.0); Calcium 9.9 mg/dL (8.4-10.2); Carbon Dioxide 33 mmol/L (22-32); Chloride 102 mmol/L (98-107); Estimated Glomerular Filt Rate > 60.0 mL/min (>60); Globulin 2.6 g/dL (1.7-4.1); Glucose 99 mg/dL (80-110); HEMOLYSIS < 15 (0-50); Potassium 4.4 mmol/L (3.4-5.1); Sodium 140 mmol/L (137-145); Total Protein 6.6 g/dL (6.3-8.2)
[2021-08-05 13:56] LABS: Erythrocyte Sedimentation Rate 5 MM/HR (0-20)
[2021-08-05 14:20] LABS: TSH w/ Reflex to FT4 0.77 uIU/mL (0.47-4.68)
[2021-08-06 04:10] LABS: Complement C3 127 mg/dL (82-167)
[2021-08-07 14:57] LABS: ANA Screen, IFA Negative (.)
== END ==
PROVIDERS: PCP Family Medicine; Referring Provider Family Medicine; Visit Provider Family Medicine
DX: M06.9 Rheumatoid arthritis, unspecified (principal); M32.9 Systemic lupus erythematosus, unspecified
CPT/HCPCS: 36415; 80053; 84443; 85025; 85651; 86038; 86140; 86160

== ENCOUNTER → 2021-09-10 10:46 | Outpatient (CLI) | payer MEDICARE, OTHER, SELFPAY ==
--- NOTE | 2021-09-10 | DI.CT.S_ITS ---
PROCEDURE: CT SINUS SCREEN WO CON INDICATIONS: Chronic pansinusitis TECHNIQUE: Noncontrast 3.0 mm axial images acquired from the frontal sinuses to the mid-sella, with coronal and sagittal reformats. For radiation dose reduction, the following was used: automated exposure control, adjustment of mA and/or kV according to patient size. COMPARISON: None. FINDINGS: Image quality: Excellent. Postsurgical changes compatible prior functional endoscopic sinus surgery. Paranasal sinuses are normally aerated. 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 No mucosal thickening. No air-fluid levels are identified. No, osseous remodeling or osseous erosive changes. Mild osseous thickening noted in the maxillary sinus saul. Nasal septum is midline. IMPRESSION: 1. Prior functional endoscopic sinus surgery. 2. No paranasal sinus mucosal thickening or air-fluid levels. Dictated by: She Goldsmith MD, PhD on 09/10/2021 at 11:48 Approved by: She Goldsmith MD, PhD on 09/10/2021 at 11:50
== END ==
PROVIDERS: PCP Family Medicine; Referring Provider Otolaryngology; Visit Provider Otolaryngology
DX: J32.4 Chronic pansinusitis (principal); R53.83 Other fatigue
CPT/HCPCS: 70486

== ENCOUNTER → 2022-09-21 14:24 | Outpatient (CLI) | payer MEDICARE, OTHER, SELFPAY | PROVIDERS: Family Provider Family Medicine; PCP Family Medicine; Visit Provider Physician Assistant Medical | DX: R30.0 Dysuria (principal) | CPT/HCPCS: 87086 ==

== ENCOUNTER → 2022-09-23 12:46 | Outpatient (CLI) | payer MEDICARE, OTHER, SELFPAY ==
[2022-09-24 17:01] LABS: C difficie Toxins A and B, EIA Negative (Negative)
== END ==
PROVIDERS: Family Provider Family Medicine; PCP Family Medicine; Referring Provider Physician Assistant Medical; Visit Provider Physician Assistant Medical
DX: A09 Infectious gastroenteritis and colitis, unspecified (principal)
CPT/HCPCS: 87045; 87324; 87899

== ENCOUNTER → 2023-03-24 16:19 | Outpatient (CLI) | payer MEDICARE, OTHER, SELFPAY ==
--- NOTE | 2023-03-24 | DI.MRI.S_ITS ---
PROCEDURE: MR TMJ WO CON INDICATIONS: Arthralgia of bilateral temporomandibular joint TECHNIQUE: Axial T1 spin echo, coronal and sagittal PD fast spin echo through the temporomandibular joints, in both the closed- and open-mouth positions. COMPARISON: None. FINDINGS: Image quality: Excellent. Right: Joint is normally aligned on closed and open-mouth positioning. Articular disk demonstrates normal location and morphology. Mild osteoarthritic changes are seen in right temporomandibular joint with joint space narrowing and subchondral sclerosis. No bony erosions or osteophytes. Left: Joint is normally aligned on closed and open-mouth positioning. Articular disk demonstrates normal location and morphology. Mild osteoarthritic changes are noted in left temporomandibular joint with slight joint space narrowing and subchondral sclerosis. No bony erosions or osteophytes. IMPRESSION: 1. 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 No bony erosion osteophytes. 2. Bilateral articular discs are grossly intact. Normal bilateral TMJ alignments. Dictated by: Lokesh Esposito M.D. on 03/25/2023 at 8:18 Approved by: Lokesh Esposito M.D. on 03/25/2023 at 9:23
== END ==
PROVIDERS: Family Provider Family Medicine; Referring Provider Otolaryngology; Visit Provider Otolaryngology
DX: M26.643 Arthritis of bilateral temporomandibular joint (principal); M26.623 Arthralgia of bilateral temporomandibular joint
CPT/HCPCS: 70336

== ENCOUNTER 2023-08-31 13:00 | Outpatient (RCR) | payer MEDICARE, OTHER, SELFPAY ==
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
--- NOTE | 2023-06-30 18:44 | PT.OPPOC ---
Physical, Occupational & Speech Therapy At [facility] Current Diagnoses Tinnitus, bilateral (06/30/23) Unspecified temporomandibular joint disorder, unspecified side (06/30/23) Cervicalgia (06/30/23) Abnormal posture (06/30/23) Visit Care Team Role Provider Type Vianey Souza MD Family Provider Physician Primary Care Provider Specialty: Family Practice Address: [address] [place] [address], [place], [address] Email: [email or web address] Mle Hartley DO Attending Provider Non-Staff Referring Provider Specialty: Internal Medicine Address: [address] [place] [address], [address] Email: Plan Of Care PT-OP-T Assessment and Plan Start: 06/08/23 15:46 Freq: Status: Active Protocol: Document 06/30/23 13:35 [facility] (Rec: 06/30/23 14:31 [facility] [id number]) Physical Therapy Assessment Rehab Potential Rehabilitation Potential Good Evaluation Complexity Number of Personal Factors/Comorbidities 3 or More Number of Body Systems Impaired 4 or More Clinical Presentation at Evaluation Evolving Impairments Impairments Activity Tolerance,Functional Activities,Functional Mobility ,Pain,Posture,ROM,Soft Tissue Mobility,Strength Goals jaw Short Term Goal (STG) Pt will improve opening to at least 25 mm to allow for greater ease w/eating. STG Duration 08/17/23 Contracting Executive Goal (LTG) Pt will improve opening to at least 30 mm to allow for greater ease w/eating. LTG Duration 09/22/23 Cervical Short Term Goal (STG) Pt will be indep w/HEP STG Duration 08/18/23 Senior Care Goal (LTG) Pt will have full cervical ROM without pain in order to have improve ease of ADLs including driving and dec strain on jaw. LTG Duration 09/22/23 symptoms Short Term Goal (STG) Pt will report no longer constant jaw pain STG Duration 08/19/23 Senior Care Goal (LTG) Pt will report a 75% reduction in echo and tinnitus in B ears. LTG Duration 09/22/23 Assessment Summary Assessment Pt presents w/history of R sided jaw pain for 2 years and 8 months starting w/a pop when laying in bed. She does correlate start of tinnitus and echo in L ear>R w/2nd COVID vaccine around the same time. She has history of autoimmune conditions including Lupus and , which contributes to overall spinal tightness, but pt does note cervical tightness. She does show deviation of jaw w/ opening and has a very limited opening and pain w/eating harder foods. Pt would benefit from skilled PT to address cervical pain, jaw pain and improve ear symptoms. Physical Therapy Plan Frequency and Duration Frequency of Treatment 1-2x/week Duration of treatment (weeks) 12 Plan of Care Start Date 06/30/23 Plan of Care End Date 09/22/23 Therapeutic Interventions Therapeutic Interventions Home Exercise Program,Joint Mobilizations,Manual Therapy, Neuromuscular Re-education, Patient/Caregiver Education, Self-Care/Home Management,Soft Tissue Mobilization,Taping, Therapeutic Activities, Therapeutic Exercises Modalities Cold Pack/Ice Massage,Electric Stimulation,Hot Packs Next Visit Focus/Plan Next Note Type Treatment Note Next Visit Plan artery screen, ask more about dizziness, posture screen, review pt's current jaw exercises, wall posture, start w/STM to cranial region & cervical; assess and trreat cranial mobs and upper cervical Plan of Care Dates Plan of Care Start Date 06/30/23 Plan of Care End Date 09/22/23 Electronically Signed by: Vianey Ponce, PT 06/30/23 8628 If you are in agreement with this Plan of Care, please return a signed and dated copy. I have reviewed this Plan of Care and certify that the skilled therapy services above are required to meet the patient?s needs. Physician Signature Date Printed Name and Credentials Clinical Instructor Signature Printed Name and Credentials
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
--- NOTE | 2023-07-25 12:59 | PT-OP ANOTE ---
Pt cancelled today's appt <24 hrs. No reason given, 5/10 total appts scheduled have been cancelled. SEALANT MIXER left message inquiring reason needed to cancel. Reminded of next appt 07/27.
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
--- NOTE | 2023-09-05 10:21 | PT-OP ANOTE ---
Pt missed today's appt, RELEASE MANAGER called her regarding. Pt stated spoke with hand ii blocker end last appt to reschedule 09/05's appt to Sep. She called late Tue and left a message to verify if today's appt got cancelled and didn't hear back yet so thought she must have moved to Sep. She asked to cancel 09/07 appt and realized Sep appt never got scheduled. She reports has many appts coming up and hard time fitting in 1 more PT appt before [place], wants PT to DC her and verbalized understanding will need to get a new referral if thinks needs to return in the future. RELEASE MANAGER notified schedulers to cancel 09/05 and 09/07 appts.
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
== END 2023-09-14 15:04 | disposition home or self-care (01) ==
LOC: PHYS 13:00
PROVIDERS: Family Provider Family Medicine; PCP Family Medicine; Referring Provider Student in an Organized Health Care Education/Training Program; Visit Provider Student in an Organized Health Care Education/Training Program
DX: M26.609 Unspecified temporomandibular joint disorder, unspecified side (principal); R29.3 Abnormal posture; M54.2 Cervicalgia; H93.13 Tinnitus, bilateral
CPT/HCPCS: 97010; 97110; 97140; 97162; 97535

== ENCOUNTER 2024-02-29 09:45 | Outpatient (RCR) | payer MEDICARE, OTHER, SELFPAY ==
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
--- NOTE | 2024-02-15 10:32 | PT.OTN ---
Current Diagnoses Benign paroxysmal vertigo, unspecified ear (02/15/24) Unspecified temporomandibular joint disorder, unspecified side (02/15/24) Pain in unspecified limb (02/15/24) Dizziness and giddiness (02/15/24) Physical Therapy Treatment Note PT-OP-A Visit Information Start: 01/11/24 07:18 Freq: Status: Active Protocol: Document 02/15/24 09:50 MB (Rec: 02/15/24 10:28 MB [id number]) Out-Patient Physical Therapy Visit Information Visit Information Visit Type Progress Note Visit Note Medicare, [employer], before KX Visit Start Time 09:50 Visit Stop Time 10:30 Visit Number 4 Number of COORDINATOR OF ONLINE PROGRAMS Visits 0 PT-OP-B Current Condition Start: 01/11/24 07:18 Freq: Status: Active Protocol: Document 01/11/24 10:34 MB (Rec: 01/11/24 11:23 MB [id number]) Current Condition History of Current Condition Onset Date 3 years Current Complaints Dizziness, hearing loss and fullness in left ear. History of Current Condition Pt reports vertigo started after first COVID vaccination. Pt reports left ear hearing changes with sometimes muffling sounds and sometimes increased sounds. She has a history of dislocated jaw on the right and had injections and PT. She altered her diet as far as consistency. Pt has had two sinus surgeries. PMH includes lupus, ankylosing spondlylitis, RA, fall and right wrist fracture, ADD. PT in the past was not helpful. She had PT for her TMD and did not get much range improvement. Dizziness is worse with closing eyes and standing up and sitting up too quickly. Her symptoms are sometimes all the time. She feels she has a chronic sinus infection and she takes an allergy pill often. She uses two nasal sprays. Pt had falls in the past year but not in the past three months. Pt denies: performance of sit- ups, anemia, trouble swallowing, recent overhead lifting, numbness and tingling . Pt reports: vision changes, ear pressure greater in left year, history of concussion, weakness from SLE, hearing change, sinus issues, B12 deficiency, roaring/ringing in the ears, history of whiplash , chiropractor treatment and TMJ problems. Pt has sleep apnea and uses a nasal pillow. She reports occ headache. Pt reports some concern about not having been listened to well enough by previous providers about TMD, hearing changes and fullness in left ear and her c/o chronic sinus infections and possible relation to being on four immunosuppressant drugs. 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 She is very dry from taking multiple medications. She gets Botox shots in her TMD area and she will have her third shot soon. Treatment Goals Patient/Caregiver Goals To decrease dizziness and vertigo and to have less tunnel hearing. PT-OP-C Subjective Start: 01/11/24 07:18 Freq: Status: Active Protocol: Document 02/15/24 09:50 MB (Rec: 02/15/24 10:28 MB [id number]) OP-PT Subjective Patient Comments Patient Comments Pt worked on her breathing and she felt more symptoms are worse with the rain. PT-OP-D Balance Start: 01/11/24 07:18 Freq: Status: Active Protocol: Document 01/11/24 10:34 MB (Rec: 01/11/24 16:09 MB [id number]) Balance Tests Other Other Balance Tests Performed Pt requires CGA for static standing with feet shoulder width apart today and so no further balance testing PT-OP-K Range of Motion Start: 01/11/24 07:18 Freq: Status: Active Protocol: Document 01/11/24 10:34 MB (Rec: 01/11/24 16:09 MB [id number]) Cervical Spine Range of Motion Cervical Spine Active Testing Position Sitting Flexion 40 Extension 30 Rotation Left 25 Rotation Right 30 TMJ Range of Motion Comments Comments Little mouth movement and some droopiness on right side of mouth, face/neck with some increased soft tissue and inflammed-type presentation PT-OP-M Strength Start: 01/11/24 07:18 Freq: Status: Active Protocol: Document 01/11/24 10:34 MB (Rec: 01/11/24 16:09 MB [id number]) Shoulder Strength Shoulder Manual Muscle Testing Bilateral Flexion 4 Good Abduction (C5) 4 Good PT-OP-O Vestibular Start: 01/11/24 07:18 Freq: Status: Active Protocol: Document 01/11/24 10:34 MB (Rec: 01/11/24 16:09 MB [id number]) Vestibular Assessment Visual Testing Spontaneous Nystagmus Negative PT-OP-Q Treatments Start: 01/11/24 07:18 Freq: Status: Active Protocol: Document 02/15/24 09:50 MB (Rec: 02/15/24 10:28 MB [id number]) Therapeutic Exercises Supine Exercises Pelvic realignment exercises Side bilateral Reps/Minutes 5 rep, 3 sec hold all exercises in order Comments Feet together, knees bent, ball squeezed, knee to opp ankle iso, knee press Manual Therapy Treatment Other Other Manual Treatments Pt hook lying with head and legs supported. B upper traps STM and positional release, suboccipital release, gentle grade II-II PA cervical mobs and positional release, grade I B 1st rib mobs, B STM SCMs, scalp and temporalis STM Neuro Re-Education Treatment Other Activities Diaphragm breathing Comments Performed today with mouth taped to improve parasympathetic nervous to improve pain PT-OP-T Assessment and Plan Start: 01/11/24 07:18 Freq: Status: Active Protocol: Document 02/15/24 09:50 MB (Rec: 02/15/24 10:28 MB [id number]) Physical Therapy Assessment Rehab Potential Rehabilitation Potential Fair Evaluation Complexity Number of Personal Factors/Comorbidities 3 or More Number of Body Systems Impaired 4 or More Clinical Presentation at Evaluation Evolving Impairments Impairments Activity Tolerance,Balance, Coordination,Functional Activities,Functional Mobility ,Gait,Pain,Posture,ROM,Soft Tissue Mobility,Strength, Transfers,Vestibular Other Concerns Fall Risk Yes Goals 3 Impairment Lack of HEP Office Machine Inspector Goal (LTG) Pt will perform progressive HEP with I including breathing and other self-care and relaxation exercises, postural , pelvic realignment, balance, strengthening, and VOR exercises to improve balance and symptoms. 02/08/24: Pt is performing Buteyko breathing exercises and reports that she is feeling better and more energized. She has trouble remembering to do exercises. LTG Duration 8 weeks 2 Impairment Evidence of imbalance Half-Way Goal (LTG) Pt will perform WNLs on FGA to decrease fall risk. 02/08/24: FGA score is 15/30 and indicates increased risk of falling LTG Duration 8 weeks 1 Impairment FES score 35/64, indicating increased concern for falling Office Machine Inspector Goal (LTG) Pt will present with a FES score of no more than 25/64, indicating decreased fear of falling. 02/08/24: Pt reports she con't to have to crawl up most of the steps. FES score is 38/64, and pt has varying reports of symptoms and this may affect scoring LTG Duration 8 weeks Assessment Summary Assessment Initiated pelvic realignment exercises today for spinal alignment and posture and taping mouth with diaphragm breathing to help with settling/relaxation and manual work. Overall, pt's breathing is softer and she is more calm in PT treatments. Physical Therapy Plan Frequency and Duration Frequency of Treatment 1-2x/wk Duration of treatment (weeks) 8 Plan of Care Start Date 01/11/24 Plan of Care End Date 03/12/24 Therapeutic Interventions Therapeutic Interventions Balance Training,Canalithic Repositioning,Coordination Training,Gait Training,Home Exercise Program,Joint Mobilizations,Manual Therapy, Neuromuscular Re-education, Patient/Caregiver Education, Self-Care/Home Management,Soft Tissue Mobilization,Taping, Therapeutic Activities, Therapeutic Exercises, Vestibular Rehabilitation Modalities Cold Pack/Ice Massage,Electric Stimulation,Hot Packs, Ultrasound Next Visit Focus/Plan Next Note Type Treatment Note Next Visit Plan Review pelvic realignment exercises and progress thoracic and cervical exercises, consider Fascial Counterstrain. Consider self- STM training to SCM
--- NOTE | 2024-02-22 10:32 | PT.OTN ---
Current Diagnoses Benign paroxysmal vertigo, unspecified ear (02/22/24) Unspecified temporomandibular joint disorder, unspecified side (02/22/24) Pain in unspecified limb (02/22/24) Dizziness and giddiness (02/22/24) Physical Therapy Treatment Note PT-OP-A Visit Information Start: 01/11/24 07:18 Freq: Status: Active Protocol: Document 02/22/24 09:50 MB (Rec: 02/22/24 10:32 MB [id number]) Out-Patient Physical Therapy Visit Information Visit Information Visit Type Treatment Note Visit Note Medicare, [employer], before KX Visit Start Time 09:50 Visit Stop Time 10:30 Visit Number 5 Number of FISH BAIT PROCESSING SUPERVISOR Visits 0 PT-OP-B Current Condition Start: 01/11/24 07:18 Freq: Status: Active Protocol: Document 01/11/24 10:34 MB (Rec: 01/11/24 11:23 MB [id number]) Current Condition History of Current Condition Onset Date 3 years Current Complaints Dizziness, hearing loss and fullness in left ear. History of Current Condition Pt reports vertigo started after first COVID vaccination. Pt reports left ear hearing changes with sometimes muffling sounds and sometimes increased sounds. She has a history of dislocated jaw on the right and had injections and PT. She altered her diet as far as consistency. Pt has had two sinus surgeries. PMH includes lupus, ankylosing spondlylitis, RA, fall and right wrist fracture, ADD. PT in the past was not helpful. She had PT for her TMD and did not get much range improvement. Dizziness is worse with closing eyes and standing up and sitting up too quickly. Her symptoms are sometimes all the time. She feels she has a chronic sinus infection and she takes an allergy pill often. She uses two nasal sprays. Pt had falls in the past year but not in the past three months. Pt denies: performance of sit- ups, anemia, trouble swallowing, recent overhead lifting, numbness and tingling . Pt reports: vision changes, ear pressure greater in left year, history of concussion, weakness from SLE, hearing change, sinus issues, B12 deficiency, roaring/ringing in the ears, history of whiplash , chiropractor treatment and TMJ problems. Pt has sleep apnea and uses a nasal pillow. She reports occ headache. Pt reports some concern about not having been listened to well enough by previous providers about TMD, hearing changes and fullness in left ear and her c/o chronic sinus infections and possible relation to being on four immunosuppressant drugs. 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 She is very dry from taking multiple medications. She gets Botox shots in her TMD area and she will have her third shot soon. Treatment Goals Patient/Caregiver Goals To decrease dizziness and vertigo and to have less tunnel hearing. PT-OP-C Subjective Start: 01/11/24 07:18 Freq: Status: Active Protocol: Document 02/22/24 09:50 MB (Rec: 02/22/24 10:32 MB [id number]) OP-PT Subjective Patient Comments Patient Comments Pt is feeling a little better since starting PT. She has a little more energy and she feels that working on the neck is helpful for her jaws. PT-OP-D Balance Start: 01/11/24 07:18 Freq: Status: Active Protocol: Document 01/11/24 10:34 MB (Rec: 01/11/24 16:09 MB [id number]) Balance Tests Other Other Balance Tests Performed Pt requires CGA for static standing with feet shoulder width apart today and so no further balance testing PT-OP-K Range of Motion Start: 01/11/24 07:18 Freq: Status: Active Protocol: Document 01/11/24 10:34 MB (Rec: 01/11/24 16:09 MB [id number]) Cervical Spine Range of Motion Cervical Spine Active Testing Position Sitting Flexion 40 Extension 30 Rotation Left 25 Rotation Right 30 TMJ Range of Motion Comments Comments Little mouth movement and some droopiness on right side of mouth, face/neck with some increased soft tissue and inflammed-type presentation PT-OP-M Strength Start: 01/11/24 07:18 Freq: Status: Active Protocol: Document 01/11/24 10:34 MB (Rec: 01/11/24 16:09 MB [id number]) Shoulder Strength Shoulder Manual Muscle Testing Bilateral Flexion 4 Good Abduction (C5) 4 Good PT-OP-O Vestibular Start: 01/11/24 07:18 Freq: Status: Active Protocol: Document 01/11/24 10:34 MB (Rec: 01/11/24 16:09 MB [id number]) Vestibular Assessment Visual Testing Spontaneous Nystagmus Negative PT-OP-Q Treatments Start: 01/11/24 07:18 Freq: Status: Active Protocol: Document 02/22/24 09:50 MB (Rec: 02/22/24 10:32 MB [id number]) Therapeutic Exercises Supine Exercises Pelvic realignment exercises Side bilateral Reps/Minutes 5 rep, 3 sec hold all exercises in order Comments Feet together, knees bent, ball squeezed, knee to opp ankle iso, knee press Sitting Exercises Anterior neck stretch Comments Perform with pressure over sternum and gentle tipping head Thoracic rotation Comments 10 reps easily side to side Manual Therapy Treatment Other Other Manual Treatments Pt hook lying with head and legs supported. B upper traps STM and positional release, suboccipital release, gentle grade II-II PA cervical mobs and positional release PT-OP-T Assessment and Plan Start: 01/11/24 07:18 Freq: Status: Active Protocol: Document 02/22/24 09:50 MB (Rec: 02/22/24 10:32 MB [id number]) Physical Therapy Assessment Rehab Potential Rehabilitation Potential Fair Evaluation Complexity Number of Personal Factors/Comorbidities 3 or More Number of Body Systems Impaired 4 or More Clinical Presentation at Evaluation Evolving Impairments Impairments Activity Tolerance,Balance, Coordination,Functional Activities,Functional Mobility ,Gait,Pain,Posture,ROM,Soft Tissue Mobility,Strength, Transfers,Vestibular Other Concerns Fall Risk Yes Goals 3 Impairment Lack of HEP Recreational Aide Goal (LTG) Pt will perform progressive HEP with I including breathing and other self-care and relaxation exercises, postural , pelvic realignment, balance, strengthening, and VOR exercises to improve balance and symptoms. 02/08/24: Pt is performing Buteyko breathing exercises and reports that she is feeling better and more energized. She has trouble remembering to do exercises. LTG Duration 8 weeks 2 Impairment Evidence of imbalance Alf Goal (LTG) Pt will perform WNLs on FGA to decrease fall risk. 02/08/24: FGA score is 15/30 and indicates increased risk of falling LTG Duration 8 weeks 1 Impairment FES score 35/64, indicating increased concern for falling Recreational Aide Goal (LTG) Pt will present with a FES score of no more than 25/64, indicating decreased fear of falling. 02/08/24: Pt reports she con't to have to crawl up most of the steps. FES score is 38/64, and pt has varying reports of symptoms and this may affect scoring LTG Duration 8 weeks Assessment Summary Assessment Re-ed pt in importance of considering alignment and posture, progressive exercises for alignment and posture. Manual work is helpful. Physical Therapy Plan Frequency and Duration Frequency of Treatment 1-2x/wk Duration of treatment (weeks) 8 Plan of Care Start Date 01/11/24 Plan of Care End Date 03/12/24 Therapeutic Interventions Therapeutic Interventions Balance Training,Canalithic Repositioning,Coordination Training,Gait Training,Home Exercise Program,Joint Mobilizations,Manual Therapy, Neuromuscular Re-education, Patient/Caregiver Education, Self-Care/Home Management,Soft Tissue Mobilization,Taping, Therapeutic Activities, Therapeutic Exercises, Vestibular Rehabilitation Modalities Cold Pack/Ice Massage,Electric Stimulation,Hot Packs, Ultrasound Next Visit Focus/Plan Next Note Type Treatment Note Next Visit Plan Review thoracic rotation and anterior neck stretch in sitting, consider thoracic ball massage against wall, QL stretch, pect stretch, progressive balance and core strengthening, intrascapular strengthening, ongoing manual work
--- NOTE | 2024-02-29 12:30 | PT.OTN ---
Current Diagnoses Benign paroxysmal vertigo, unspecified ear (02/29/24) Unspecified temporomandibular joint disorder, unspecified side (02/29/24) Pain in unspecified limb (02/29/24) Dizziness and giddiness (02/29/24) Physical Therapy Treatment Note PT-OP-A Visit Information Start: 01/11/24 07:18 Freq: Status: Active Protocol: Document 02/29/24 09:50 MB (Rec: 02/29/24 10:33 MB [id number]) Out-Patient Physical Therapy Visit Information Visit Information Visit Type Treatment Note Visit Note Medicare, [employer], before KX Progress note by 03/10 Visit Start Time 09:50 Visit Stop Time 10:30 Visit Number 6 Number of HIGH LIFT MULE OPERATOR Visits 0 Evaluation Information Evaluation Date 01/11/24 PT-OP-B Current Condition Start: 01/11/24 07:18 Freq: Status: Active Protocol: Document 01/11/24 10:34 MB (Rec: 01/11/24 11:23 MB [id number]) Current Condition History of Current Condition Onset Date 3 years Current Complaints Dizziness, hearing loss and fullness in left ear. History of Current Condition Pt reports vertigo started after first COVID vaccination. Pt reports left ear hearing changes with sometimes muffling sounds and sometimes increased sounds. She has a history of dislocated jaw on the right and had injections and PT. She altered her diet as far as consistency. Pt has had two sinus surgeries. PMH includes lupus, ankylosing spondlylitis, RA, fall and right wrist fracture, ADD. PT in the past was not helpful. She had PT for her TMD and did not get much range improvement. Dizziness is worse with closing eyes and standing up and sitting up too quickly. Her symptoms are sometimes all the time. She feels she has a chronic sinus infection and she takes an allergy pill often. She uses two nasal sprays. Pt had falls in the past year but not in the past three months. Pt denies: performance of sit- ups, anemia, trouble swallowing, recent overhead lifting, numbness and tingling . Pt reports: vision changes, ear pressure greater in left year, history of concussion, weakness from SLE, hearing change, sinus issues, B12 deficiency, roaring/ringing in the ears, history of whiplash , chiropractor treatment and TMJ problems. Pt has sleep apnea and uses a nasal pillow. She reports occ headache. Pt reports some concern about not having been listened to well enough by previous providers about TMD, hearing changes and fullness in left ear and her c/o chronic sinus infections and possible relation to being on four immunosuppressant drugs. 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 She is very dry from taking multiple medications. She gets Botox shots in her TMD area and she will have her third shot soon. Treatment Goals Patient/Caregiver Goals To decrease dizziness and vertigo and to have less tunnel hearing. PT-OP-C Subjective Start: 01/11/24 07:18 Freq: Status: Active Protocol: Document 02/29/24 09:50 MB (Rec: 02/29/24 10:33 MB [id number]) OP-PT Subjective Patient Comments Patient Comments Pt had a hard time waking up. She met her new primary doctor yesterday. She likes the manual work and asks for that today. Pelvic realignment exercises are provocative. Pt has c/o that eustachian tubes feel full. She has shooting pains in thorax. PT-OP-D Balance Start: 01/11/24 07:18 Freq: Status: Active Protocol: Document 01/11/24 10:34 MB (Rec: 01/11/24 16:09 MB [id number]) Balance Tests Other Other Balance Tests Performed Pt requires CGA for static standing with feet shoulder width apart today and so no further balance testing PT-OP-K Range of Motion Start: 01/11/24 07:18 Freq: Status: Active Protocol: Document 01/11/24 10:34 MB (Rec: 01/11/24 16:09 MB [id number]) Cervical Spine Range of Motion Cervical Spine Active Testing Position Sitting Flexion 40 Extension 30 Rotation Left 25 Rotation Right 30 TMJ Range of Motion Comments Comments Little mouth movement and some droopiness on right side of mouth, face/neck with some increased soft tissue and inflammed-type presentation PT-OP-M Strength Start: 01/11/24 07:18 Freq: Status: Active Protocol: Document 01/11/24 10:34 MB (Rec: 01/11/24 16:09 MB [id number]) Shoulder Strength Shoulder Manual Muscle Testing Bilateral Flexion 4 Good Abduction (C5) 4 Good PT-OP-O Vestibular Start: 01/11/24 07:18 Freq: Status: Active Protocol: Document 01/11/24 10:34 MB (Rec: 01/11/24 16:09 MB [id number]) Vestibular Assessment Visual Testing Spontaneous Nystagmus Negative PT-OP-Q Treatments Start: 01/11/24 07:18 Freq: Status: Active Protocol: Document 02/29/24 09:50 MB (Rec: 02/29/24 10:33 MB [id number]) Therapeutic Exercises Supine Exercises Pelvic realignment exercises Comments Verbally review today Sitting Exercises Anterior neck stretch Comments Perform with pressure over sternum and gentle tipping head Thoracic rotation Comments 10 reps easily side to side Standing Exercises Racquet ball massage Comments Infrascapular area, pulsing in and out Manual Therapy Treatment Other Other Manual Treatments Pt hook lying with head and legs supported: increased tension left first rib, grade II mobs, increased tension mid cervical spine and PA mobs grade III, STM B upper traps and levator PT-OP-T Assessment and Plan Start: 01/11/24 07:18 Freq: Status: Active Protocol: Document 02/29/24 09:50 MB (Rec: 02/29/24 10:33 MB [id number]) Physical Therapy Assessment Rehab Potential Rehabilitation Potential Fair Evaluation Complexity Number of Personal Factors/Comorbidities 3 or More Number of Body Systems Impaired 4 or More Clinical Presentation at Evaluation Evolving Impairments Impairments Activity Tolerance,Balance, Coordination,Functional Activities,Functional Mobility ,Gait,Pain,Posture,ROM,Soft Tissue Mobility,Strength, Transfers,Vestibular Other Concerns Fall Risk Yes Goals 3 Impairment Lack of HEP Snf Goal (LTG) Pt will perform progressive HEP with I including breathing and other self-care and relaxation exercises, postural , pelvic realignment, balance, strengthening, and VOR exercises to improve balance and symptoms. 02/08/24: Pt is performing Buteyko breathing exercises and reports that she is feeling better and more energized. She has trouble remembering to do exercises. LTG Duration 8 weeks 2 Impairment Evidence of imbalance Snf Goal (LTG) Pt will perform WNLs on FGA to decrease fall risk. 02/08/24: FGA score is 15/30 and indicates increased risk of falling LTG Duration 8 weeks 1 Impairment FES score 35/64, indicating increased concern for falling Bag Shaker Goal (LTG) Pt will present with a FES score of no more than 25/64, indicating decreased fear of falling. 02/08/24: Pt reports she con't to have to crawl up most of the steps. FES score is 38/64, and pt has varying reports of symptoms and this may affect scoring LTG Duration 8 weeks Assessment Summary Assessment Pt arrives and asks for manual work. She appears somewhat frustrated when PT ed pt that must do other things and not just manual work with PT. Unsure if this will make her unhappy with PT in the future. Encouraged pt that PT does need to provide exercises as well for self-care and overall improvement as far as goals. Would like to progress vestibular exercises and unsure how pt will tolerate d/ t many complaints. Pt con't to talk about many providers and concern with many provider interactions and this may be a barrier moving forward with this PT. Pt is distractable and it is difficult to stay on task during therapy treatments. This is also a barrier. PT makes new copies of all exercises today and provides folder d/t pt having misplaced some exercises. Questionable compliance at home of HEP may be a barrier. Physical Therapy Plan Frequency and Duration Frequency of Treatment 1-2x/wk Duration of treatment (weeks) 8 Plan of Care Start Date 01/11/24 Plan of Care End Date 03/12/24 Therapeutic Interventions Therapeutic Interventions Balance Training,Canalithic Repositioning,Coordination Training,Gait Training,Home Exercise Program,Joint Mobilizations,Manual Therapy, Neuromuscular Re-education, Patient/Caregiver Education, Self-Care/Home Management,Soft Tissue Mobilization,Taping, Therapeutic Activities, Therapeutic Exercises, Vestibular Rehabilitation Modalities Cold Pack/Ice Massage,Electric Stimulation,Hot Packs, Ultrasound Next Visit Focus/Plan Next Note Type Treatment Note Next Visit Plan Consider QL stretch, pect stretch, progressive balance and core strengthening, intrascapular strengthening, ongoing manual work
--- NOTE | 2024-03-07 08:12 | PT.OPDS ---
Current Diagnoses Benign paroxysmal vertigo, unspecified ear (02/29/24) Unspecified temporomandibular joint disorder, unspecified side (02/29/24) Pain in unspecified limb (02/29/24) Dizziness and giddiness (02/29/24) Visit Care Team Role Provider Type Mel Hartley DO Attending Provider Non-Staff Family Provider Primary Care Provider Referring Provider Specialty: Internal Medicine Address: [address] [place] [address], [id number] Email: Visit Number Visit Number 6 Discharge Summary PT-OP-B Current Condition Start: 01/11/24 07:18 Freq: Status: Active Protocol: Document 01/11/24 10:34 MB (Rec: 01/11/24 11:23 MB [id number]) Current Condition History of Current Condition Onset Date 3 years Current Complaints Dizziness, hearing loss and fullness in left ear. History of Current Condition Pt reports vertigo started after first COVID vaccination. Pt reports left ear hearing changes with sometimes muffling sounds and sometimes increased sounds. She has a history of dislocated jaw on the right and had injections and PT. She altered her diet as far as consistency. Pt has had two sinus surgeries. PMH includes lupus, ankylosing spondlylitis, RA, fall and right wrist fracture, ADD. PT in the past was not helpful. She had PT for her TMD and did not get much range improvement. Dizziness is worse with closing eyes and standing up and sitting up too quickly. Her symptoms are sometimes all the time. She feels she has a chronic sinus infection and she takes an allergy pill often. She uses two nasal sprays. Pt had falls in the past year but not in the past three months. Pt denies: performance of sit- ups, anemia, trouble swallowing, recent overhead lifting, numbness and tingling . Pt reports: vision changes, ear pressure greater in left year, history of concussion, weakness from SLE, hearing change, sinus issues, B12 deficiency, roaring/ringing in the ears, history of whiplash , chiropractor treatment and TMJ problems. Pt has sleep apnea and uses a nasal pillow. She reports occ headache. Pt reports some concern about not having been listened to well enough by previous providers about TMD, hearing changes and fullness in left ear and her c/o chronic sinus infections and possible relation to being on four immunosuppressant drugs. 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 She is very dry from taking multiple medications. She gets Botox shots in her TMD area and she will have her third shot soon. Treatment Goals Patient/Caregiver Goals To decrease dizziness and vertigo and to have less tunnel hearing. PT-OP-C Subjective Start: 01/11/24 07:18 Freq: Status: Active Protocol: Document 02/29/24 09:50 MB (Rec: 02/29/24 10:33 MB [id number]) OP-PT Subjective Patient Comments Patient Comments Pt had a hard time waking up. She met her new primary doctor yesterday. She likes the manual work and asks for that today. Pelvic realignment exercises are provocative. Pt has c/o that eustachian tubes feel full. She has shooting pains in thorax. PT-OP-D Balance Start: 01/11/24 07:18 Freq: Status: Active Protocol: Document 01/11/24 10:34 MB (Rec: 01/11/24 16:09 MB [id number]) Balance Tests Other Other Balance Tests Performed Pt requires CGA for static standing with feet shoulder width apart today and so no further balance testing PT-OP-K Range of Motion Start: 01/11/24 07:18 Freq: Status: Active Protocol: Document 01/11/24 10:34 MB (Rec: 01/11/24 16:09 MB [id number]) Cervical Spine Range of Motion Cervical Spine Active Testing Position Sitting Flexion 40 Extension 30 Rotation Left 25 Rotation Right 30 TMJ Range of Motion Comments Comments Little mouth movement and some droopiness on right side of mouth, face/neck with some increased soft tissue and inflammed-type presentation PT-OP-M Strength Start: 01/11/24 07:18 Freq: Status: Active Protocol: Document 01/11/24 10:34 MB (Rec: 01/11/24 16:09 MB [id number]) Shoulder Strength Shoulder Manual Muscle Testing Bilateral Flexion 4 Good Abduction (C5) 4 Good PT-OP-O Vestibular Start: 01/11/24 07:18 Freq: Status: Active Protocol: Document 01/11/24 10:34 MB (Rec: 01/11/24 16:09 MB [id number]) Vestibular Assessment Visual Testing Spontaneous Nystagmus Negative PT-OP-T Assessment and Plan Start: 01/11/24 07:18 Freq: Status: Active Protocol: Document 03/07/24 08:10 MB (Rec: 03/07/24 08:12 WALKER [id number]) Physical Therapy Assessment Assessment Summary Assessment Pt canceled today's treatment which was last one scheduled before POC ends. PT had planned to perform progress note to check pt's progress with goals as she had not been progressing with FES or HEP goals previously. PT attempts to call patient to see if she can get into PT's only opening before now and POC end date, 03/12/24, and pt's voice mailbox is full and PT cannot leave message. Overall, pt has had a challenge getting to appointments on time and has not progressed readily towards PT goals. Will d/c PT.
== END 2024-03-12 11:09 | disposition home or self-care (01) ==
LOC: PHYS 09:45
PROVIDERS: Family Provider Student in an Organized Health Care Education/Training Program; PCP Student in an Organized Health Care Education/Training Program; Referring Provider Student in an Organized Health Care Education/Training Program; Visit Provider Student in an Organized Health Care Education/Training Program
DX: H81.10 Benign paroxysmal vertigo, unspecified ear (principal); M26.609 Unspecified temporomandibular joint disorder, unspecified side; M79.609 Pain in unspecified limb
CPT/HCPCS: 97110; 97112; 97140; 97163; 97535

== ENCOUNTER → 2024-04-19 16:43 | Outpatient (CLI) | payer MEDICARE, OTHER, SELFPAY ==
--- NOTE | 2024-04-19 16:45 | DI.US.S_ITS ---
PROCEDURE: US PELVIC COMPLETE INDICATIONS: POST MENOPAUSAL BLEEDING TECHNIQUE: Real-time scanning was performed of the pelvic organs, with image documentation. Additional endovaginal scanning was necessary due to incomplete visualization of the adnexal and endometrial structures by transabdominal scanning. COMPARISON: [facility], US, US PELVIC COMPLETE, 02/15/2020, 8:57. FINDINGS: Uterus: Retroverted positioning. 7.2 x 4.1 x 3 centimeters. Endometrium measures 4 millimeters, at the upper limit of normal. Ovaries: Nonenlarged ovaries bilaterally. Other: No pathologic free abdominal or pelvic fluid. IMPRESSION: The endometrium measures 4 millimeters, which is the limit of normal. Dictated by: Rian Gilbert M.D. on 04/20/2024 at 14:30 Approved by: Rian Gilbert M.D. on 04/20/2024 at 14:32
== END ==
PROVIDERS: Family Provider Student in an Organized Health Care Education/Training Program; PCP Family Medicine; Referring Provider Acupuncturist; Visit Provider Acupuncturist
DX: N95.0 Postmenopausal bleeding (principal)
CPT/HCPCS: 76830; 76856